=== PATIENT | female | born 1985 ===

== ENCOUNTER 2024-09-11 15:08 | Outpatient (AMB) | payer OTHER, SELFPAY ==
[2024-09-11 16:09] VITALS: BP 124/88; PULSE 84; O2SAT 98; BMI 40.8
--- NOTE | 2024-09-11 16:09 | AM.OFFWIN_ITS ---
Intake Vital Signs 09/11/24 16:09 Height 5 ft 1 in Weight 216 lb BMI 40.8 BP 124/88 Blood Pressure Location Rt brachial Position Sitting Pulse 84 Pulse Source Pulse Oximeter Pulse Oximetry (%) 98 Oxygen Delivery Method Room Air Intake Visit Reasons: [employer] lower back pain Intake Note: Patient here for lower back pain that started on tuesday after lifting a heavy box. Patient Tobacco Use Status: Never used Tobacco Allergies Penicillins Adverse Reaction (Intermediate, Verified 09/11/24 16:13) hives Do you need a note to return to daycare/school/sports/work: Yes HPI HPI Comments History of Present Illness Details History of Present Illness The patient is a 39-year-old female presenting with acute low back pain. She reports the onset of pain following the lifting of a heavy box on Tuesday. The weight of the box was substantial, possibly exceeding 25 pounds, and she believes poor lifting technique may have contributed to the injury, including twisting motions. On the day of the incident, she did not experience immediate pain but noted significant discomfort the following day, describing it as dull, achy, and throbbing, localized to the left lower back. The patient denies any radiating pain down the legs or buttocks and has not experienced bladder or bowel incontinence, although she notes a need for urgency when urinating. Pain severity increases with certain movements, including sitting, bending down, and turning while lying down. No numbness is reported in the affected area. For pain management, she has employed the use of heating pads and lidocaine patches from [facility], which provided surface numbing without substantial relief, and has been taking Advil. The pain has significantly impacted the patient's comfort and mobility, and she seeks further intervention for relief. REPLACED BY [facility] Social History Patient Tobacco Use Status: Never used Tobacco Review of Systems Const All systems reviewed & are unremarkable except as noted in HPI and below Physical Exam Const General: cooperative, healthy appearing and comfortable Orientation/consciousness: patient oriented x3 HEENT Head: Yes normal to inspection and Yes normocephalic General nose exam: Normal external nose present Face and sinus: Yes normal facial exam Eyes General: appearance normal, both eyes and all related structures Resp Effort & Inspection: normal respiratory effort and able to speak in complete sentences Back/Spine/Pelvis Cervical Spine: cervical ROM normal and No Cervical spine tenderness Thoracic/Lumbar Spine: thoracic and lumbar spine normal to inspection, paraspinal muscle tenderness, thoraco-lumbar ROM limited, No thoracic spinal tenderness and No lumbar spinal tenderness Neuro General: patient oriented x3 Extrem Other: Straight leg raise test negative on right; Straight leg raise test negative on left; Reflexes normal ankle and knee bilaterally; motor strength normal bilaterally Assessment & Plan Assessment & Plan (1) Low back pain: Code(s): M54.50 - Low back pain, unspecified Qualifiers: Chronicity: acute Back pain laterality: left Sciatica presence: without sciatica Qualified Code(s): M54.50 - Low back pain, unspecified Plan: For acute low back pain, the plan is to manage the symptoms and facilitate healing. The patient is advised to continue using [id number] NSAIDs such as Advil 600 mg every six hours) or Aleve every 12 hours) for pain relief. A prescription for cyclobenzaprine a muscle relaxant) will be provided to aid in reducing muscle tension; the patient should take this medication at night due to its sedative effects, with caution advised to avoid alcohol consumption and driving. The patient is encouraged to use heat therapy via patches for symptomatic relief, and trial use of ice may also be considered to determine personal efficacy. No immediate red flags suggest a serious underlying pathology, and the patient is informed of the potential for recurrence and the non-addictive nature of cyclobenzaprine. Follow-up will depend on symptom progression and resolution. Patient was informed and verbally consented to the use of an ambient scribe for clinic note documentation during this visit. Medications: New cyclobenzaprine 5 mg PO Q8H PRN 15 tabs 0RF Muscle Spasm Coding Level of Care Code New Pt Level 3 (42976) Diagnoses Acute left-sided low back pain without sciatica M54.50 Chronicity: acute Back pain laterality: left Sciatica presence: without sciatica
== END 2024-09-11 16:27 | disposition home or self-care (01) ==
PROVIDERS: Visit Provider Physician Assistant
DX: M54.50 Low back pain, unspecified (principal)

== ENCOUNTER → 2024-09-11 15:08 | Outpatient (BNVA) | payer OTHER, SELFPAY | PROVIDERS: Visit Provider Physician Assistant ==